=== PATIENT | male | born 1995 | race Caucasian/White ===

== ENCOUNTER 2019-10-22 15:48 | Emergency (ER) | payer SELFPAY ==
[2019-10-22 15:56] VITALS: BP 146/98; PULSE 76; RESP 16; TEMP 37; O2SAT 99
--- NOTE | 2019-10-22 16:17 | ED.SKABFB ---
HPI - Skin/Abscess/Foreign Bdy General Chief complaint: Skin/Abscess/Foreign Body Stated complaint: sore on right arm Time Seen by Provider: 10/22/19 15:48 Source: patient and RN notes reviewed History of Present Illness HPI narrative: Patient is a 24-year-old male who presents the urgent care with complaints of an itchy rash to the right lower abdomen, right forearm and left wrist. Patient states that started approximately 4 days ago and is becoming more itchy and irritated. Patient states that his girlfriend told him he had ringworm and needed to be treated . Patient has not used anything [id number] for his symptoms. Patient states he does work outside and does believe he may have came in contact with some poison ciara. No other acute complaints. No acute distress noted. Patient read the plan of care. Related Data Allergies Allergy/AdvReac Type Severity Reaction Status Date / Time No Known Allergies Allergy Verified 10/22/19 16:05 Review of Systems Review of Systems: Narrative: CONSTITUTIONAL: Denies fever, chills, or sweats. EYES: Denies visual changes, redness, or discharge. ENT: Denies rhinorrhea, congestion, sore throat, or otalgia. CARDIOVASCULAR: Denies chest pain, palpitations, or edema. RESPIRATORY: Denies cough or dyspnea. GASTROINTESTINAL: Denies abdominal pain, nausea, vomiting, or diarrhea. GENITOURINARY: Denies dysuria or hematuria. SKIN: Reports of an itchy rash to the right forearm, right lower abdomen and left wrist MUSCULOSKELETAL: Denies back pain, joint pain, or myalgia. NEUROLOGIC: Denies headache, numbness, or weakness. All other systems reviewed are negative, except as documented in HPI. PMFSH Comments At the time of my signature, I reviewed and agree with the nursing past medical, surgical, social, and family history. There is no relevant family history pertinent to the patient complaint. Exam Narrative: Exam Narrative: GENERAL: This is a well-nourished, well-developed patient, in no apparent distress. HEAD: normocephalic, atraumatic. EYES: PERRL. Sclera clear/white. Vision is grossly intact. EARS: External ears normal NOSE: External nose normal with no obvious nasal discharge, nares without redness, no rhinorrhea. THROAT: Mucous membranes moist NECK: Neck supple SKIN: Pustular dermatitis noted to the right forearm, right lower abdomen, and left wrist with surrounding erythema and irritation. Warm, intact with no suspicious lesions or rash, good texture and turgor. NEURO: awake, alert, and oriented to person, place and time. There were no obvious focal neurologic abnormalities. EXTREMITIES: No clubbing, cyanosis, or edema. Course Vital Signs Vital signs: Vital Signs Temperature 98.6 F 10/22/19 15:56 Pulse Rate 76 10/22/19 15:56 Respiratory Rate 16 10/22/19 15:56 Blood Pressure 146/98 H 10/22/19 15:56 Pulse Oximetry 99 10/22/19 15:56 Temperature 98.6 F 10/22/19 15:56 Pulse Rate 76 10/22/19 15:56 Respiratory Rate 16 10/22/19 15:56 Blood Pressure 146/98 H 10/22/19 15:56 Pulse Oximetry 99 10/22/19 15:56 Reviewed?patient is informed that they may have pre-hypertension or hypertension based on a blood pressure reading in the department. I recommend the patient call the primary care provider listed on their discharge instructions or a physician of their choice this week to arrange follow-up for further evaluation of possible pre-hypertension or hypertension. MDM - Skin/Abscess/Foreign Bdy MDM Narrative Medical decision making narrative: Educated the patient on fungal rash versus poison sumac/oak. The rash presents more like a ruse dermatitis rather than fungal. Advised the patient to use prescription cream to the areas as directed. Complete steroid regimen as prescribed. Make sure to eat and drink with the oral medication. If the rash does not improve over the next 3 days, or worsens, follow-up with your PCP. However, if you feel that it is a fungal rash you ma
== END 2019-10-22 16:20 | disposition home or self-care (01) ==
PROVIDERS: Emergency Provider Nurse Practitioner Family
DX: L23.7 Allergic contact dermatitis due to plants, except food (principal)
CPT/HCPCS: 99203; G0463